=== PATIENT | female | born 2000 | race Caucasian/White ===

== ENCOUNTER → 2023-06-07 | Outpatient (CLI) | payer BC, OTHER | LOC: M SOG 13:08 | PROVIDERS: ATTEND Physician Assistant | DX: M25.561 Pain in right knee (principal) ==

== ENCOUNTER → 2023-09-01 | Outpatient (CLI) | payer BC | LOC: M PLARAD 12:49 | PROVIDERS: ATTEND Physician Assistant | DX: M23.91 Unspecified internal derangement of right knee (principal) ==

== ENCOUNTER → 2023-09-22 | Outpatient (REF) | LOC: M EMP 12:31 | PROVIDERS: ATTEND Family Medicine | DX: Z11.52 Encounter for screening for COVID-19 (principal) ==

== ENCOUNTER 2024-02-28 21:16 | Emergency (ER) | payer BC, OTHER ==
[~2024-02-28] VITALS: Ht 170.2 cm; Wt 58.3 kg
[2024-02-28] MEDS ORDERED: HYDR-643 (21:31)
[2024-02-28] MEDS ORDERED: BUSP5TA (21:31)
[2024-02-28 21:58] LABS: BASO # 0.1 10^3/uL (0.0-0.2); BASO % 0.3 % (0.0-1.0); EOS # 0.1 10^3/uL (0.0-0.5); EOS % 0.5 % (0.0-3.0); HEMATOCRIT 38.7 % (36.0-47.0); HEMOGLOBIN 14.4 g/dl (12.0-15.5); LYMPH # 2.3 10^3/uL (1.5-5.0); LYMPH % 15.7 % (24.0-44.0); MEAN CORPUSCULAR VOLUME 88.6 fl (80.0-96.0); MONO # 0.5 10^3/uL (0.0-0.8); MONO % 3.5 % (2.0-8.0); NEUTROPHILS # 11.7 10^3/uL (1.5-8.5); NEUTROPHILS % 79.5 % (36.0-66.0); PLATELET COUNT, AUTOMATED 326 10^3/uL (150-450); RED BLOOD COUNT 4.37 10^6/uL (4.00-5.40); WHITE BLOOD COUNT 14.7 10^3/uL (4.0-10.0)
[2024-02-28 22:12] LABS: MEAN CORPUSCULAR HGB CONC 37.2 g/dl (32.0-36.5)
[2024-02-28 22:14] LABS: BLOOD UREA NITROGEN 15 MG/DL (9-23); CALCIUM LEVEL 9.3 MG/DL (8.5-10.1); CARBON DIOXIDE LEVEL 24 MMOL/L (20-31); CHLORIDE LEVEL 108 MMOL/L (98-107); CREATININE FOR GFR 0.71 MG/DL (0.55-1.30); GLOMERULAR FILTRATION RATE > 60.0 (>60); GLUCOSE, FASTING 111 MG/DL (60-100); POTASSIUM SERUM 3.4 MMOL/L (3.5-5.1); SODIUM LEVEL 143 MMOL/L (136-145)
[2024-02-29] MEDS: LR 1,000 ML IV ONE (00:50)
[2024-02-29] MEDS: ONDANSETRON 4MG ORAL DISINTEGRATING TAB PO ONE (01:00)
[2024-02-29 01:38] LABS: AMYLASE 52 U/L (30-118); LIPASE 29 U/L (12-53)
[2024-02-29 01:39] LABS: ALBUMIN 4.3 G/DL (3.2-5.2); ALKALINE PHOSPHATASE 102 U/L (35-104); ALT/SGPT 13 U/L (7.0-40); AST/SGOT 12 U/L (<34); BILIRUBIN,DIRECT 0.8 MG/DL (<0.4); BILIRUBIN,TOTAL 2.1 MG/DL (0.3-1.2); MAGNESIUM LEVEL 1.8 MG/DL (1.8-2.4); TOTAL PROTEIN 7.2 G/DL (5.7-8.2)
[2024-02-29 01:52] LABS: HCG, SERUM QUALITATIVE NEGATIVE (NEGATIVE)
[2024-02-29 02:01] LABS: KETONE, URINE AUTO RFX TRACE mg/dL (NEGATIVE); LEUKOCYTE ESTERASE UR AUTO RFX NEGATIVE (NEGATIVE); MUCUS, URINE RFX LARGE (NEGATIVE); NITRITE, URINE AUTO RFX NEGATIVE (NEGATIVE); RBC, URINE AUTO RFX 4 /HPF (0-3); SQUAM EPITHELIAL CELL UR AURFX 2 /HPF (0-6); WBC, URINE AUTO RFX 4 /HPF (0-3)
[2024-02-29] MEDS: POTASSIUM CHLORIDE 10MEQ SR TABLET PO ONE (02:05)
[2024-02-29] MEDS ORDERED: ONDA-282 PO (02:05)
[2024-02-29 02:15] VITALS: BP 99/61; TEMP 98.1; O2SAT 99
== END 2024-02-29 02:24 | disposition home or self-care (01) ==
LOC: M ED 21:16
DX: A08.4 Viral intestinal infection, unspecified (principal); B34.1 Enterovirus infection, unspecified; F17.200 Nicotine dependence, unspecified, uncomplicated; Z88.1 Allergy status to other antibiotic agents; Z79.83 Long term (current) use of bisphosphonates; Z79.899 Other long term (current) drug therapy

== ENCOUNTER → 2025-01-14 | Outpatient (CLI) | payer OTHER ==
[~2025-01-14] MED LIST: BUSP5TA; HYDR-643; ONDA-282 PO
[2025-01-14 14:49] LABS: INR 1.04
[2025-01-14 14:54] LABS: ALT/SGPT 13.0 U/L (7.0-40); AST/SGOT 16.0 U/L (<34)
== END ==
LOC: M LAB 13:42
PROVIDERS: ATTEND Nurse Practitioner Adult Health
DX: D58.0 Hereditary spherocytosis (principal)

== ENCOUNTER → 2025-01-16 | Outpatient (CLI) | payer OTHER | LOC: M RAD 10:50 | PROVIDERS: ATTEND Nurse Practitioner Adult Health | DX: D58.0 Hereditary spherocytosis (principal); R16.1 Splenomegaly, not elsewhere classified ==